=== PATIENT | male | born 2000 | race Caucasian/White ===

== ENCOUNTER 2025-02-28 15:38 | Emergency (ER) | payer BC, MEDICAID ==
[~2025-02-28] VITALS: Ht 175.3 cm; Wt 85.3 kg
[2025-02-28 15:44] VITALS: BP 128/73; PULSE 88; RESP 16; TEMP 98; O2SAT 99
--- NOTE | 2025-02-28 16:50 | Physician Documentation ---
History of Present Illness ~ Chief Complaint: Eye Pain Stated Complaint: EYE PAIN Time Seen by MD: 16:05 OK to notify your PCP?: Yes Source: patient, RN/ HPI Patient is seen today with complaints of foreign body or sliver in his right eye that occurred just prior to arrival today. Patient states he does have experience with foreign bodies in his eye and states he currently has foreign body sensation right eye. He denies any changes in vision. He is as discomfort and pain in right eye. He has no other concern or complaint at this time. Medication Reconciliation Allergies: Coded Allergies: No Known Allergies (Unverified , 09/23/14) Past Medical History Past Medical History: No Pertinent History Past Surgical History: no surgical history Alcohol Use: None Drug Use: none Lives with: Family Lives In: Home Occupation: student, child Review of Systems Constitutional: Denies: chills, fever, weakness Eyes: Denies: pain, blurred vision ENT: Denies: ear pain, nose pain, throat pain, mouth pain Respiratory: Denies: cough, shortness of breath Cardiovascular: Denies: chest pain, palpitations Gastrointestinal: Denies: abdominal pain, nausea, vomiting Genitourinary: Denies: burning, dysuria Male Genitalia: Denies: penile discharge, testicular pain Neurological: Denies: headache, dizziness Musculoskeletal: Denies: pain, swelling Integumentary: Denies: rash, lesions Allergic/Immunologic: Denies: hives, itching Hematologic/Lymphatic: Denies: no symptoms reported Psychiatric: Denies: depression, anxiety Physical Exam Vital Signs: Temperature: 98.0, Source: Temporal, Heart Rate: 88, Respiratory Rate: 16, BP: 128/73, Pulse Oximetry: 99, Weight: 85.300 Oxygen Flow Rate: 0 Physical Exam General: Awake and Alert, no acute distress. HEENT: Fluorescein stain Wood's lamp exam I do not appreciate any significant corneal abrasion or foreign body. Conjunctiva pink, Sclera clear, Mucus Membranes moist. Neck: Supple without masses and tenderness. Resp: Unlabored. Lungs clear to auscultation bilaterally. Heart: Regular Rate and rhythm, normal S1 and S2 without murmur, rub or gallop. Abdomen: Soft and non tender no organomegaly Extremities: No cyanosis,clubbing or edema. Skin: Warm and Dry. Procedures Eye Procedure Procedure Note Wood's lamp fluorescein stain with proparacaine procedure or exam performed today. Patient tolerated well. Progress Results/Orders Results/Orders Vital Signs 02/28/25 15:44 Temp 98.0 Pulse 88 Resp 16 B/P (MAP) 128/73 Pulse Ox 99 O2 Flow Rate 0 Medical Decision Making Additional information obtaine: N/A Findings Patient is seen today with complaints of foreign body or sliver in his right eye that occurred just prior to arrival today. Patient states he does have experience with foreign bodies in his eye and states he currently has foreign body sensation right eye. He denies any changes in vision. He is as discomfort and pain in right eye. He has no other concern or complaint at Patient does not appear to have any significant or serious corneal abrasion on exam in the ED today. Patient will follow up with primary care in 1-3 days if no better as needed sooner. Return to ED with any worsening, concerning or changing symptoms. Ear Diff. Dx: Considerations: Include: Abrasion; Unlikely: Cerumen impaction, Foreign body, Otitis externa, Barotrauma, Otitis media, Perforation, Referred pain-dental, Referred pain-pharyngitis, Referred pain-sinusitis, Referred pain- TMJ syn., Tympanic Membrane Injury, Other Eye Diff. Dx: Considerations: Include: Conjuctivits-allergic, Corneal abrasion, Corneal laceration, Corneal ulceration, Foreign body-conjuctiva, Foreign body- corneal, Iritis, Orbital cellulitis Nose Diff. Dx: Considerations: Unlikely: Abrasion, Anterior nasal bleed, Avulsion, Contusion, Coagulopathy, Fracture-nasal bone, Fracture-septum, Hypertension, Laceration, Other, Posterior nasal bleed, Retained foreign body, Septal hematoma Tooth Diff. Dx: Considerations: Unlikely: Alveolar fracture, Aveolar osteitis, ANUG, Facial cellulitis, Periapical abscess, Periodontal abscess, Post- extraction bleeding, Pulpitis, Trigeminal neuralgia, Tooth-avulsion, Tooth- eruption, Tooth-fracture, Tooth-subluxation, Other Throat Diff Dx: Considerations: Unlikely: AIDS, Epiglottitis, Esophageal candidiasis, Hand foot mouth disease, Herpangina, Herpetic stomatitis, Herpes simplex, Infection mononucleosis, Immunodeficiency, Berry's angina, Peritonsillar abscess, Peritonsillar cellulitis, Pharyngitis-diphtheria, Pharyngitis-strepococcal, Pharyngitis-viral, Thrush, URI, Other Departure Disposition: HOME / SELF CARE / HOMELESS Impression: Primary Impression: Foreign body in site on external eye Qualified Codes: T15.91XA - Foreign body on external eye, part unspecified, right eye, initial encounter Condition: Stable Discharge Instructions: Corneal Abrasion, Foreign Body, Eye Additional Instructions: Patient does not appear to have any significant or serious corneal abrasion on exam in the ED today. Patient will follow up with primary care in 1-3 days if no better as needed sooner. Return to ED with any worsening, concerning or changing symptoms. Referrals: NO PRIMARY CARE PROVIDER (PCP) Signature Scribe Signature: No scribe Attestation: No scribe ALYSSA THIBODEAUX PAC Feb 28, 2025 16:50
== END 2025-02-28 17:07 | disposition home or self-care (01) ==
LOC: ER 15:39
DX: T15.91XA Foreign body on external eye, part unspecified, right eye, initial encounter (principal); W44.9XXA Unspecified foreign body entering into or through a natural orifice, initial encounter; Y93.89 Activity, other specified; Y92.89 Other specified places as the place of occurrence of the external cause; Y99.8 Other external cause status
CPT/HCPCS: 99283